=== PATIENT | female | born 1970 ===

== ENCOUNTER 2017-06-03 16:53 | Emergency (ER) | payer OTHER ==
[2017-06-03 17:12] VITALS: RESP 18; O2SAT 100
--- NOTE | 2017-06-03 20:07 | ED PDOC ---
Lower Extremity Pain/Injury Time Seen by Provider: 06/03/17 17:48 Chief Complaint (Nursing): Lower Extremity Problem/Injury Chief Complaint (Provider): Left Knee Pain History Per: Patient History/Exam Limitations: no limitations Onset/Duration Of Symptoms: Days (x3) Additional Complaint(s): 46 y/o female with no significant pmhx, who presents for evaluation of atraumatic left knee pain x3 days. Patient states that she woke up with the pain and it worsens with movement. Denies taking any medication before presenting to ED. States she works in a [employer] and shes on her feet for long period at a time. Denies falls, fever, chills, cough, SOB, dyspnea, control use, smoking, calf tenderness, or leg swelling. PMD: Dr. Penaloza Past Medical History Reviewed: Historical Data, Nursing Documentation, Vital Signs Vital Signs: Last Vital Signs Temp 98.2 F 06/03/17 17:10 Pulse 78 06/03/17 17:10 Resp 18 06/03/17 17:10 BP 170/100 H 06/03/17 17:10 Pulse Ox 100 06/03/17 17:10 - Medical History PMH: No Chronic Diseases - Surgical History Surgical History: (x3) Other surgeries: Hysterectomy - Family History Family History: States: Unknown Family Hx - Social History Current smoker - smoking cessation education provided: No Alcohol: Occasional Drugs: Denies - Immunization History Hx Influenza Vaccination: Yes Hx Pneumococcal Vaccination: No - Home Medications Home Medications: Ambulatory Orders Medication Instructions Recorded traMADol [Ultram] 50 mg PO BID PRN #15 tab 10/02/15 Naproxen 500 mg PO BID #20 tab 06/03/17 - Allergies Allergies/Adverse Reactions: Allergies Allergy/AdvReac Type Severity Reaction Status Date / Time No Known Allergies Allergy Verified 10/02/15 13:55 Review of Systems ROS Statement: Except As Marked, All Systems Reviewed And Found Negative Constitutional: Negative for: Fever Musculoskeletal: Positive for: Leg Pain (left knee) Physical Exam - Reviewed Nursing Documentation Reviewed: Yes Vital Signs Reviewed: Yes - Physical Exam Comments: GENERAL APPEARANCE: Patient is awake, alert, oriented x 3, in no acute distress. Ambulatory in ED with steady gait. SKIN: Warm, dry; (-) cyanosis. NECK: Supple, FROM (-) tenderness ENT: Mucus membranes moist. CHEST AND RESPIRATORY: (-) chest wall tenderness. Lungs: (-) rales, (-) rhonchi , (-) wheezes; breath sounds equal bilaterally. HEART AND CARDIOVASCULAR: (-) irregularity; (-) murmur, (-) gallop. Left Knee: (-) reproducible tenderness, (-) effusion, (-) ecchymosis of left knee. (-) deformity. (-) calf tenderness, (-) palpable cord, (-) pedal edema, ( +) full ROM. Sensation intact, (-) distal NV deficit. - ECG O2 Sat by Pulse Oximetry: 100 (RA) Pulse Ox Interpretation: Normal Medical Decision Making Medical Decision Making: Time: 18:29 Initial Impression: Acute knee pain. Sprain. Plan: --Toradol 30mg IM --Morales Bandage --Reevaluation Time: 19:53 On reevaluation, patient reports improvement of pain. Morales wrap applied, NV intact after placement. RICE encouraged. Repeat BP: 158/98. Repeat HR: 62. Stable for discharge. Advised to follow up with primary care physician in 1-2 days without fail. Advised to take medication as prescribed. Return to the emergency room at any time for any new or worsening symptoms. Patient states she fully agrees with and understands discharge instructions. States that she agrees with the plan and disposition. Verbalized and repeated discharge instructions and plan. I have given the patient opportunity to ask any additional questions. Scribe Attestation: Documented by Nolberto Maria, acting as a scribe for Amanda Garza PA-C. Provider Scribe Attestation: All medical record entries made by the Scribe were at my direction and personally dictated by me. I have reviewed the chart and agree that the record accurately reflects my personal performance of the history, physical exam, medical decision making, and the department course for this patient. I have also personally directed, reviewed, and agree with the discharge instructions and disposition. Disposition - Clinical Impression Clinical Impression: Knee pain, acute, Knee sprain - Patient ED Disposition Is Patient to be Admitted: No Counseled Patient/Family Regarding: Diagnosis, Need For Followup, Rx Given - Disposition Referrals: [facility] [Outside] Disposition: Routine/Home Disposition Time: 19:53 Condition: STABLE Additional Instructions: REST ICE COMPRESS (BANDAGE) ELEVATE Prescriptions: Naproxen 500 mg PO BID #20 tab Instructions: Knee Sprain (DC), Knee Pain (DC) Forms: [facility] (Korean) Print Language: PASHTO
[2017-06-03 20:08] VITALS: BP 158/98; PULSE 62; TEMP 97.5
== END 2017-06-03 20:12 | disposition home or self-care (01) ==
LOC: H.ER 16:53
DX: M25.562 Pain in left knee (principal)
CPT/HCPCS: 96372; 99283; J1885